=== PATIENT | female | born 1965 | race Caucasian/White ===

== ENCOUNTER 2024-06-04 07:00 | Day surgery (SDC) | payer OTHER, SELFPAY ==
[2024-05-23 11:18] VITALS: BMI 34.0
--- NOTE | 2024-06-04 06:45 | WPDANESEPPF ---
Anes - Initial Pre Proc Eval Procedure: Operation Date: 06/04/24 09:00 Proposed Procedures p Screening Colonoscopy - Peter Galeas DO Date/Time: 06/04/24 06:45 Surgeon: Peter Galeas DO Pre Op Diagnosis: Neoplasm Screening Patient Data Age: 58 Gender: F Height: 1.68 m Weight: 95.5 kg Allergies Allergy/AdvReac Type Severity Reaction Status Date / Time prednisone Allergy Severe Gastrointestinal Verified 06/04/24 08:06 Upset Home Medications Medication Instructions Recorded Confirmed Type amlodipine 5 mg-olmesartan 40 mg 1 tablet PO DAILY 04/02/24 06/04/24 History tablet cholecalciferol (vitamin D3) 125 125 mcg PO DAILY 04/02/24 06/04/24 History mcg (5,000 unit) capsule digestive enzymes 1 cap PO DAILY 04/02/24 06/04/24 History omeprazole 40 mg capsule,delayed 40 mg PO DAILY 04/02/24 06/04/24 History release progesterone micronized 200 mg 200 mg PO QHS 04/02/24 06/04/24 History capsule rosuvastatin 10 mg tablet 10 mg PO DAILY 04/02/24 06/04/24 History thyroid (pork) 30 mg tablet (REDUCTION PLANT SUPERVISOR 30 mg PO DAILY 04/02/24 06/04/24 History Thyroid) Patient hx anesthesia problems: none Family hx anesthesia problems: none Results Review: All pre-operative results and documents have been reviewed as part of the pre-operative evaluation. [facility] Past Medical History Medical History (Updated 05/04/24 @ 10:57 by Katelynn Thomson) GERD (gastroesophageal reflux disease) Hyperlipidemia Hypertension IBS (irritable bowel syndrome) Rectal fissure Surgical History Surgical History H/O rotator cuff surgery (~1994) right rotator cuff Hx of cholecystectomy (~2005) S/P cervical spinal fusion (~2015) C3, C4, C5 fusion Status post partial removal of lung (~2010) left upper lobe Family History Family History Mother Heart disease Father Heart disease Aneurysm Sibling Aneurysm Social History Social History Smoking status: Never smoker Second hand tobacco smoke exposure: No Alcohol intake: current Alcohol use details: 4 PER MONTH Substance use: never Substance use type: does not use Do You Feel Safe in your Home?: Yes Lack of Transportation: No Lack of Food: Never True Current Housing: I Have Housing Concerned About Future Housing: No Difficulty Paying Gas/Electric Bills: No Difficulty Paying for Meds: No Currently Unemployed: No Education: Bachelor's Degree Difficulty w/ Childcare or Family Care: No Living arrangements: with family Additional living arrangements comments: single Occupation/Education: occupation 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 Gender identity (if verbalized by the patient): Female Sexual Orientation (if Verbalized by the Patient): Straight or Heterosexual Spiritual care concerns: No Anes - Eval Final PreProcedure Day of Procedure 06/04/24 06:45 Patient weight: obese Heart: regular rate and rhythm Lungs: clear to auscultation Airway: Mallampati scale class III Neurological: alert and oriented Last oral intake: >/= 8 hours ASA classification: III Emergent: no Anesthetic plan: proceed Anesthesia type and monitoring: general GIVS and standard monitoring Results Review: All pre-operative results and documents have been reviewed as part of the pre-operative evaluation. Informed Consent: The patient's anesthetic plan and its attendant risks and benefits were discussed with the patient/family/POA. Questions were solicited and answers provided to the satisfaction of the patient/family/POA.
[2024-06-04 08:07] VITALS: BP 123/83; PULSE 80; RESP 16; TEMP 36.6; O2SAT 97
[2024-06-04] MEDS: LACTATED RINGERS 1,000 ML 150 ML IV CONT (08:10)
--- NOTE | 2024-06-04 09:06 | PM.IMHP ---
H&P: HPI History of Present Illness Date/Time: 06/04/24 09:06 Chief Complaint: screening for colorectal cancer Narrative: this is a 58-year-old woman who presents for colonoscopy. Her last colonoscopy was 10-15 years ago. She denies any hematochezia or melena she does have occasional hemorrhoid is. She denies family history of colon cancer Review of Systems Review of Systems: All systems reviewed & are unremarkable except as noted in HPI and below Constitutional: Constitutional: Denies chills, Denies fever(s), Denies headache(s) and Denies weight loss Eyes: Eyes: Denies change in vision ENT: Denies dizziness, Denies headache(s), Denies neck mass and Denies throat swelling Cardiovascular: Cardiovascular: Denies chest pain, Denies lightheadedness and Denies dyspnea Respiratory: Respiratory: Denies cough, Denies dyspnea and Denies wheezing Gastrointestinal: Gastrointestinal: Denies abdominal pain, Denies change in bowel habits, Denies nausea and Denies vomiting Genitourinary: Genitourinary: Denies hematuria and Denies dysuria Musculoskeletal: Musculoskeletal: Reports as per HPI Integumentary/Breasts: Skin/Breast: Reports as per HPI Neurologic: Denies dizziness and Denies headache(s) Allergic/Immunologic: Allergic/Immunologic: Denies throat swelling and Denies wheezing PMF Past Medical History Medical History (Updated 05/04/24 @ 10:57 by Katelynn Thomson) GERD (gastroesophageal reflux disease) Hyperlipidemia Hypertension IBS (irritable bowel syndrome) Rectal fissure Surgical History Surgical History H/O rotator cuff surgery (~1994) right rotator cuff Hx of cholecystectomy (~2005) S/P cervical spinal fusion (~2015) C3, C4, C5 fusion Status post partial removal of lung (~2010) left upper lobe Family History Family History Mother Heart disease Father Heart disease Aneurysm Sibling Aneurysm Social History Social History Smoking status: Never smoker Second hand tobacco smoke exposure: No Alcohol intake: current Alcohol use details: 4 PER MONTH Substance use: never Substance use type: does not use Do You Feel Safe in your Home?: Yes Lack of Transportation: No Lack of Food: Never True Current Housing: I Have Housing Concerned About Future Housing: No Difficulty Paying Gas/Electric Bills: No Difficulty Paying for Meds: No Currently Unemployed: No Education: Bachelor's Degree Difficulty w/ Childcare or Family Care: No Living arrangements: with family Additional living arrangements comments: single Occupation/Education: occupation 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 Gender identity (if verbalized by the patient): Female Sexual Orientation (if Verbalized by the Patient): Straight or Heterosexual Spiritual care concerns: No Meds Home Medications and Allergies Home Medications Medication Instructions Recorded Confirmed Type amlodipine 5 mg-olmesartan 40 mg 1 tablet PO DAILY 04/02/24 06/04/24 History tablet cholecalciferol (vitamin D3) 125 125 mcg PO DAILY 04/02/24 06/04/24 History mcg (5,000 unit) capsule digestive enzymes 1 cap PO DAILY 04/02/24 06/04/24 History omeprazole 40 mg capsule,delayed 40 mg PO DAILY 04/02/24 06/04/24 History release progesterone micronized 200 mg 200 mg PO QHS 04/02/24 06/04/24 History capsule rosuvastatin 10 mg tablet 10 mg PO DAILY 04/02/24 06/04/24 History thyroid (pork) 30 mg tablet (STATISTICS TUTOR 30 mg PO DAILY 04/02/24 06/04/24 History Thyroid) Allergies Allergy/AdvReac Type Severity Reaction Status Date / Time prednisone Allergy Severe Gastrointestinal Verified 06/04/24 08:06 Upset Vital Signs Vital Signs - 24 hr 06/04/24 08:07 Temperature 36.6 C Pulse Rate 80 Respiratory Rate 16 B
[2024-06-04 09:37] VITALS: BP 92/65; PULSE 84; RESP 14; O2SAT 98
[2024-06-04 09:47] VITALS: BP 94/63; PULSE 71; RESP 16; O2SAT 100
[2024-06-04 09:57] VITALS: BP 110/75; PULSE 73; RESP 20; O2SAT 100
--- NOTE | 2024-06-04 10:47 | WPDANESPN ---
Anes - Prog Note Post-Op Date/Time: 06/04/24 10:47 Cardiovascular status: normal Respiratory status: normal Airway patency: baseline Mental status: baseline Post-Op hydration status: normal Vital Signs: Last Vital Signs Temp 36.6 C 06/04/24 08:07 Pulse 73 06/04/24 09:57 Resp 20 06/04/24 09:57 BP 110/75 06/04/24 09:57 Pulse Ox 100 06/04/24 09:57 O2 Del Method Room Air 06/04/24 09:57 Pain Score (VAS): 0 I/O: Intake & Output 06/03/24 06/04/24 06/04/24 23:59 07:59 15:59 Intake Total 1000 Balance 1000 Post-procedural complaints: none Patient Feedback: Patient satisfied with anesthetic care. Other Findings: Patient vital signs back to baseline. Patient denies nausea and vomiting. Patient's pain under control. Patient OK for discharge.
== END 2024-06-04 10:03 | disposition home or self-care (01) ==
PROVIDERS: PCP Family Medicine; Visit Provider Surgery
PROC: 0DJD8ZZ Inspection of Lower Intestinal Tract, Via Natural or Artificial Opening Endoscopic (ICD-10-PCS; CPT 45378; principal; 2024-06-04 09:00)
DX: Z12.11 Encounter for screening for malignant neoplasm of colon (principal); K57.30 Diverticulosis of large intestine without perforation or abscess without bleeding; K64.8 Other hemorrhoids
CPT/HCPCS: 45378

== ENCOUNTER 2024-07-05 02:09 | Day surgery (SDC) | payer OTHER, SELFPAY ==
[2024-06-25 14:18] VITALS: BMI 34.0
--- NOTE | 2024-06-25 14:19 | PC.NURSE ---
Report to the Outpatient Waiting Room, entrance under the green pavilion located off [facility], at time _0600_ on date _[id number]_. Planned Procedure Time: _0730_.? Time changes happen often and if your time is changed the preop area will call you the afternoon before. - You and your visitor will be asked to self-screen and do not enter if you have any COVID symptoms. Please call surgeon if you need to reschedule. - A mask is optional within the hospital at this time. Patients may have clear liquids (water, carbonated beverages, clear teas, apple juice) until 3 hours prior to surgery with a maximum of 20 ounces. - No food from midnight until time of surgery and no smoking Take only the following medications with a SIP of water on the morning of surgery: ___Thyroid DO NOT STOP ANY OF YOUR OTHER PRESCRIPTION MEDICATIONS PRIOR TO SURGERY EXCEPT THE FOLLOWING Medications to discontinue per physician ____Vitamins and supplements. Date to take last ljfs____[id number] Please no make-up, nail omani, hairspray, perfume, deodorant, or body powder the day of surgery.? No jewelry (including any body piercings) or valuables the day of surgery, leave them at home.? Please take a shower or bath the night before, or the morning of, surgery with an antibacterial soap.? Wear comfortable, loose fitting clothing.? - Jewelry must be removed prior to entering the operating room.? Rings and piercings that are not removed may be cut off. - The hospital will not accept responsibility for valuables.? - Please leave all valuables, including medications, at home the day of surgery. If you are going home after surgery, a licensed dump truck driver off highway must drive you home.? - NO public transportation without another adult if you receive anesthesia. - We recommend that an adult stay with you for 24 hours following discharge. - We also recommend that you do not drive, make important decision, drink alcoholic beverages, or take any drugs that were not prescribed by your health care provider for at least 24 hours after your discharge time. Follow any additional instructions given to you from your surgeon. Telephone instructions given to __Gege__and asked if any additional questions and then verbalized understanding. Patient advised to call surgeon office or pre surgery nurse liaison [phone] if any additional questions.
--- NOTE | 2024-07-02 11:03 | PM.IMHP ---
H&P: HPI History of Present Illness Date/Time: 07/02/24 11:03 58-year-old female presents for definitive management of postmenopausal bleeding during her evaluation for this she has had an ultrasound which shows fibroid, as well as endometrial biopsy which did not show any abnormal tissue. Initially began with this problem after she had been taking her menopausal hormone treatment for approximately 2 years. During this evaluation the above was noted and she has opted now to have definitive management of her uterine fibroids. Chief Complaint: Postmenopausal bleeding PMFSH Past Medical History Medical History GERD (gastroesophageal reflux disease) Hyperlipidemia Hypertension IBS (irritable bowel syndrome) Rectal fissure Surgical History Surgical History H/O rotator cuff surgery (~1994) right rotator cuff Hx of cholecystectomy (~2005) S/P cervical spinal fusion (~2015) C3, C4, C5 fusion Status post partial removal of lung (~2010) left upper lobe Family History Family History Mother Heart disease Father Heart disease Aneurysm Sibling Aneurysm Social History Social History Smoking status: Never smoker Second hand tobacco smoke exposure: No Alcohol intake: current Alcohol use details: 4 PER MONTH Substance use: never Substance use type: does not use Do You Feel Safe in your Home?: Yes Lack of Transportation: No Lack of Food: Never True Current Housing: I Have Housing Concerned About Future Housing: No Difficulty Paying Gas/Electric Bills: No Difficulty Paying for Meds: No Currently Unemployed: No Education: Bachelor's Degree Difficulty w/ Childcare or Family Care: No Living arrangements: with family Additional living arrangements comments: single Occupation/Education: occupation 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 Gender identity (if verbalized by the patient): Female Sexual Orientation (if Verbalized by the Patient): Straight or Heterosexual Spiritual care concerns: No Meds Home Medications and Allergies Home Medications Medication Instructions Recorded Confirmed Type amlodipine 5 mg-olmesartan 40 mg 1 tablet PO DAILY 04/02/24 06/25/24 History tablet cholecalciferol (vitamin D3) 125 125 mcg PO DAILY 04/02/24 06/25/24 History mcg (5,000 unit) capsule digestive enzymes 1 cap PO DAILY 04/02/24 06/25/24 History omeprazole 40 mg capsule,delayed 40 mg PO DAILY 04/02/24 06/25/24 History release progesterone micronized 200 mg 200 mg PO QHS 04/02/24 06/25/24 History capsule rosuvastatin 10 mg tablet 10 mg PO DAILY 04/02/24 06/25/24 History thyroid (pork) 30 mg tablet (RIBBON WINDER 30 mg PO DAILY 04/02/24 06/25/24 History Thyroid) Allergies Allergy/AdvReac Type Severity Reaction Status Date / Time prednisone AdvReac Severe Gastrointestinal Verified 06/25/24 14:10 Upset Exam Const: General: cooperative, healthy appearing and comfortable Resp: Effort & Inspection: normal respiratory effort Auscultation: clear to auscultation bilaterally Cardio: Rate: regular rate Rhythm: regular rhythm GI: Inspection: normal to inspection Auscultation: normal bowel sounds : External Female Exam: normal external appearance Speculum Exam - Vagina: normal appearance of the vagina Speculum Exam - Cervix: normal appearance of the cervix Bimanual exam- vagina & uterus: enlarged ( 8-10 week size irregular contour) Bimanual Exam- Adnexa, other: normal adnexae Assessment and Plan Assessment and plan (1) Fibroid uterus: Code(s): D25.9 - Leiomyoma of uterus, unspecified Status: Acute (2) Postmenopausal bleeding: Code(s): N95.0 - Postmenopausal bleeding Status: Acute Plan p
[2024-07-05] VITALS (12 sets, daily range): BP systolic 106–150; BP diastolic 69–95; PULSE 73–98; RESP 12–17; TEMP 36.3–36.8; O2SAT 93–100
[2024-07-05] MEDS: KETOROLAC 15 MG/ML VIAL (*BKC) IV PUSH (06:30)
[2024-07-05] MEDS: LACTATED RINGERS 1,000 ML 30 ML IV CONT ×2 (06:30→09:05)
[2024-07-05] MEDS: ACETAMINOPHEN 500 MG TABLET 1000 MG PO (06:30)
[2024-07-05 07:06] LABS: Hemoglobin 14.5 g/dL (12.0-15.0); Mean Corpuscular HGB Conc 33.7 g/dl (32-36); Mean Corpuscular Hemoglobin 30.3 pg (26-34); Mean Platelet Volume 8.9 fl (7.4-10.4); Platelet Count Result 292 k/mm3 (150-375); Red Blood Count 4.78 M/mm3 (4.2-5.4); Red Cell Distribution Width 11.8 % (11.5-14.5); White Blood Count 6.5 K/mm3 (4.5-10.0)
--- NOTE | 2024-07-05 07:18 | WPDHPUPDATE1 ---
History and Physical Update Update Date/Time: 07/05/24 07:18 History and Physical has been reviewed, including an updated exam of the patient. There are NO changes in the patient's condition. Risks, benefits, and alternatives have been discussed and questions answered. Patient agrees to proceed with procedure.
--- NOTE | 2024-07-05 07:20 | WPDANESEPPF ---
Anes - Initial Pre Proc Eval Procedure: Operation Date: 07/05/24 07:30 Proposed Procedures p Robotic Assisted Total Laparoscopic Hysterectomy with Bilateral Salpingo-oohorectomy - Morteza Jaquez MD Date/Time: 07/05/24 07:20 Surgeon: Morteza Jaquez MD Pre Op Diagnosis: Post Menopausal Bleeding Patient Data Age: 58 Gender: F Height: 1.68 m Weight: 95.5 kg Allergies Allergy/AdvReac Type Severity Reaction Status Date / Time prednisone AdvReac Severe Gastrointestinal Verified 06/25/24 14:10 Upset Home Medications Medication Instructions Recorded Confirmed Type amlodipine 5 mg-olmesartan 40 mg 1 tablet PO DAILY 04/02/24 06/25/24 History tablet cholecalciferol (vitamin D3) 125 125 mcg PO DAILY 04/02/24 06/25/24 History mcg (5,000 unit) capsule digestive enzymes 1 cap PO DAILY 04/02/24 06/25/24 History omeprazole 40 mg capsule,delayed 40 mg PO DAILY 04/02/24 06/25/24 History release progesterone micronized 200 mg 200 mg PO QHS 04/02/24 06/25/24 History capsule rosuvastatin 10 mg tablet 10 mg PO DAILY 04/02/24 06/25/24 History thyroid (pork) 30 mg tablet (BRANCH MECHANIC 30 mg PO DAILY 04/02/24 06/25/24 History Thyroid) Laboratory Tests 07/05/24 06:07 WBC 6.5 K/mm3 (4.5-10.0) RBC 4.78 M/mm3 (4.2-5.4) Hgb 14.5 g/dL (12.0-15.0) Hct 43.0 % (37.0-47.0) MCV 90.0 fl (80-100) MCH 30.3 pg (26-34) MCHC 33.7 g/dl (32-36) RDW 11.8 % (11.5-14.5) Plt Count 292 k/mm3 (150-375) MPV 8.9 fl (7.4-10.4) Blood Type Pending Antibody Screen Pending Patient hx anesthesia problems: none Family hx anesthesia problems: none Results Review: All pre-operative results and documents have been reviewed as part of the pre-operative evaluation. [facility] Past Medical History Medical History GERD (gastroesophageal reflux disease) Hyperlipidemia Hypertension IBS (irritable bowel syndrome) Rectal fissure Surgical History Surgical History H/O rotator cuff surgery (~1994) right rotator cuff Hx of cholecystectomy (~2005) S/P cervical spinal fusion (~2015) C3, C4, C5 fusion Status post partial removal of lung (~2010) left upper lobe Family History Family History Mother Heart disease Father Heart disease Aneurysm Sibling Aneurysm Social History Social History Smoking status: Never smoker Second hand tobacco smoke exposure: No Alcohol intake: current Alcohol use details: 4 PER MONTH Substance use: never Substance use type: does not use Do You Feel Safe in your Home?: Yes Lack of Transportation: No Lack of Food: Never True Current Housing: I Have Housing Concerned About Future Housing: No Difficulty Paying Gas/Electric Bills: No Difficulty Paying for Meds: No Currently Unemployed: No Education: Bachelor's Degree Difficulty w/ Childcare or Family Care: No Living arrangements: with family Additional living arrangements comments: single Occupation/Education: 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 Gender identity (if verbalized by the patient): Female Sexual Orientation (if Verbalized by the Patient): Straight or Heterosexual Spiritual care concerns: No Anes - Eval Final PreProcedure Day of Procedure 07/05/24 07:20 Patient weight: obese Heart: regular rate and rhythm Lungs: clear to auscultation Airway: Mallampati scale class II Neurological: alert and oriented Last oral intake: >/= 8 hours ASA classification: III Emergent: no Anesthetic plan: proceed Anesthesia type and monitoring: general ETT and standard monitoring Results Review: All pre-operative results and documents have been reviewed as part of th
[2024-07-05] MEDS: ceFAZolin 2 GM/D5W 50 ML 2 GM/50 ML BAG IVPB (07:22)
--- NOTE | 2024-07-05 08:42 | W.PM.PROC2 ---
Procedure Note - Detailed Date of Procedure 07/05/24 Pre-op Diagnosis Post Menopausal Bleeding Post-op Diagnosis Same Procedure Performed Robotic assisted total laparoscopic hysterectomy with bilateral salpingo oophorectomy Surgeon Morteza Jaquez MD Anesthesia General Findings Enlarged uterus, tubes ovaries without abnormality Description of Procedure Patient prepped draped usual manner for this procedure. Cervical instruments placed for uterine mobility throughout the procedure. Surgeon then moved to the patient's abdomen and trocar sites were marked trocars were placed under direct visualization. Patient was placed in Trendelenburg position and de Ilsa system was attached to these trocars. Instruments were placed under direct visualization with findings as noted above. Bilaterally the round ligament was cauterized cut bladder flap developed without difficulty. Infundibulopelvic ligament was then cauterized and cut and mesial salpinx was cauterized and cut to separate the ovary and tube from the pelvic sidewall. Posterior leaf the broad ligament was then incised to skeletonize the uterine vessels. Vessels then cauterized and cut bilaterally. Anterior colpotomy was is was made and this was carried circumferentially to separate the cervix from the vagina. Uterus tubes over then delivered into the then without difficulty. V lock suture was then used to approximate the vaginal cuff with hemostasis and good approximation noted. Irrigation was undertaken there was no bleeding. Hemogram was placed throughout all of the surgical periods without difficulty. Gas was allowed to escape, trocars removed, incisions approximated using 4-0 Monocryl. Patient was sent to recovery room in stable condition. Estimated Blood Loss 100 Drains No Packing No Pathology Yes Complications No immediate complications Condition Stable Disposition PACU [facility] Billing Surgery - Charge Forward: Surgery Billing
[2024-07-05] MEDS: fentaNYL CITRATE INJ (*CRX) 100 MCG/2 ML VIAL 25 MCG IV PUSH ×6 (09:28→10:05)
[2024-07-05] MEDS: HYDROmorphone HCL INJ (*CRX) 1 MG/ML SYR IV PUSH (10:22)
[2024-07-05] MEDS: SIMETHICONE 80 MG TAB.CHEW PO ×3 (11:20→19:54)
[2024-07-05] MEDS: HYDROcodone/acetaminophen (*CRX) 10-325 MG TABLET 1 TAB PO ×2 (11:21→15:13)
[2024-07-05] MEDS: IBUPROFEN 600 MG TABLET PO (15:13)
[2024-07-05] MEDS: ONDANSETRON INJ 4 MG/2 ML VIAL IV PUSH (20:09)
[2024-07-06] MEDS: HYDROcodone/acetaminophen (*CRX) 5-325 MG TABLET 1 TAB PO ×2 (00:54→08:28)
[2024-07-06] MEDS: IBUPROFEN 600 MG TABLET PO ×2 (00:54→08:28)
[2024-07-06 00:56] VITALS: BP 99/58; PULSE 94; RESP 16; TEMP 36.8; O2SAT 95
[2024-07-06] MEDS: HYDROcodone/acetaminophen (*CRX) 10-325 MG TABLET 1 TAB PO (05:08)
[2024-07-06 05:26] VITALS: BP 125/77; PULSE 91; RESP 16; TEMP 36.6; O2SAT 95
[2024-07-06 06:14] LABS: Basophils Percent Auto 0.2 % (0.2-1.2); Hematocrit 44.1 % (37.0-47.0); Hemoglobin 14.3 g/dL (12.0-15.0); Immature Granulocyte Absolute 0.04 K/mm3 (0.00-0.031); Immature Granulocyte Percent A 0.3 % (0-0.5); Lymphocytes Absolute Auto 1.03 K/mm3 (0.9-3.2); Lymphocytes Percent Auto 8.3 % (18.3-44.2); Mean Corpuscular HGB Conc 32.4 g/dl (32-36); Mean Corpuscular Hemoglobin 29.8 pg (26-34); Mean Corpuscular Volume 91.9 fl (80-100); Mean Platelet Volume 8.9 fl (7.4-10.4); Monocytes Absolute Auto 1.1 K/mm3 (0.1-0.6); Monocytes Percent Auto 9.2 % (2.6-8.5); Neutrophils Absolute Auto 10.2 K/mm3 (1.3-6.7); Platelet Count Result 354 k/mm3 (150-375); Red Cell Distribution Width 11.7 % (11.5-14.5); White Blood Count 12.4 K/mm3 (4.5-10.0)
[2024-07-06 07:35] VITALS: BP 116/69; PULSE 86; RESP 16; TEMP 36.6; O2SAT 94
[2024-07-06] MEDS: SIMETHICONE 80 MG TAB.CHEW PO (08:29)
[2024-07-06 08:30] VITALS: PULSE 86; RESP 16; O2SAT 94
== END 2024-07-06 10:55 | disposition home or self-care (01) ==
LOC: ANHSURGERY 05:56 → ANHOB2 16:34
PROVIDERS: PCP Family Medicine; Visit Provider Obstetrics & Gynecology
PROC: (CPT 58571; principal; 2024-07-05 07:30)
DX: D25.1 Intramural leiomyoma of uterus (principal); N80.03 Adenomyosis of the uterus; N99.71 Accidental puncture and laceration of a genitourinary system organ or structure during a genitourinary system procedure; I10 Essential (primary) hypertension; E78.5 Hyperlipidemia, unspecified; K21.9 Gastro-esophageal reflux disease without esophagitis; K58.9 Irritable bowel syndrome, unspecified; G89.18 Other acute postprocedural pain; E66.9 Obesity, unspecified; Z68.35 Body mass index [BMI] 35.0-35.9, adult; Z98.890 Other specified postprocedural states; Z90.49 Acquired absence of other specified parts of digestive tract; Z98.1 Arthrodesis status; Z90.2 Acquired absence of lung [part of]; Z82.49 Family history of ischemic heart disease and other diseases of the circulatory system
CPT/HCPCS: 58571; 57200; S2900; 36415; 85025; 85027; 86850; 86900; 86901; 88307; 99199; A9270; J0690; J1100; J1170; J1885; J2250; J2371; J2405; J2704; J3010; J7030; J7120

== ENCOUNTER 2024-10-08 05:51 | Day surgery (SDC) | payer OTHER, SELFPAY ==
[2024-07-11 14:49] VITALS: BMI 34.0
[2024-09-17 14:21] VITALS: BMI 34.0
--- NOTE | 2024-10-08 07:06 | P.PNAN_ITS ---
Anes - Initial Pre Proc Eval Procedure: Operation Date: 10/08/24 07:30 Proposed Procedures p Esophagogastroduodenoscopy - Peter Galeas DO Date/Time: 10/08/24 07:06 Surgeon: Peter Galeas DO Pre Op Diagnosis: Halitosis Patient Data Age: 58 Gender: F Height: 1.68 m Weight: 97.45 kg Allergies Allergy/AdvReac Type Severity Reaction Status Date / Time prednisone AdvReac Severe Gastrointestinal Verified 10/08/24 06:13 Upset Home Medications ?Medication ?Instructions ?Recorded ?Confirmed ?Type amlodipine 5 mg-olmesartan 40 mg 1 tablet PO DAILY 04/02/24 10/08/24 History tablet cholecalciferol (vitamin D3) 125 125 mcg PO DAILY 04/02/24 10/08/24 History mcg (5,000 unit) capsule digestive enzymes 1 cap PO DAILY 04/02/24 10/08/24 History progesterone micronized 200 mg 200 mg PO QHS 04/02/24 10/08/24 History capsule rosuvastatin 10 mg tablet 10 mg PO DAILY 04/02/24 10/08/24 History thyroid (pork) 30 mg tablet (TRAY CASTING MACHINE OPERATOR 30 mg PO DAILY 04/02/24 10/08/24 History Thyroid) cranberry fruit concentrate 250 mg 250 mg PO TID 08/17/24 10/08/24 History chewable tablet (Azo Cranberry) lactobacillus combination no.9 4 4,000 mmu cells PO DAILY 08/17/24 10/08/24 History billion cell capsule (Adult 50 Plus Probiotic) Patient hx anesthesia problems: none Family hx anesthesia problems: none Results Review: All pre-operative results and documents have been reviewed as part of the pre- operative evaluation. [facility] Past Medical History Medical History (Updated 10/08/24 @ 07:07 by Brooks Martínez DO) History of melanoma Hypothyroidism Rectal fissure IBS (irritable bowel syndrome) GERD (gastroesophageal reflux disease) Hyperlipidemia Hypertension Surgical History Surgical History History of robot-assisted laparoscopic hysterectomy (07/05/24) Robotic assisted total laparoscopic hysterectomy with bilateral salpingo oophorectomy S/P cervical spinal fusion (~2015) C3, C4, C5 fusion H/O rotator cuff surgery (~1994) right rotator cuff Hx of cholecystectomy (~2005) Status post partial removal of lung (~2010) left upper lobe Family History Family History Mother Heart disease Father Heart disease Aneurysm Sibling Aneurysm Social History Social History Smoking status: Never smoker Second hand tobacco smoke exposure: No Alcohol intake: current Drinks per week: 4 Alcohol use details: 4 PER MONTH Substance use: never Substance use type: does not use Do You Feel Safe in your Home?: Yes Lack of Transportation: No Lack of Food: Never True Current Housing: I Have Housing Concerned About Future Housing: No Difficulty Paying Gas/Electric Bills: No Difficulty Paying for Meds: No Currently Unemployed: No Education: Bachelor's Degree Difficulty w/ Childcare or Family Care: No Living arrangements: with family Additional living arrangements comments: single Occupation/Education: occupation 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 Gender identity (if verbalized by the patient): Female Sexual Orientation (if Verbalized by the Patient): Straight or Heterosexual Spiritual care concerns: No Anes - Eval Final PreProcedure Day of Procedure 10/08/24 07:06 Patient weight: obese Heart: regular rate and rhythm Lungs: clear to auscultation Airway: Mallampati scale class II Neurological: alert and oriented Last oral intake: >/= 8 hours ASA classification: III Emergent: no Anesthetic plan: proceed Anesthesia type and monitoring: general GIVS and standard monitoring Results Review: All pre-operative results and documents have been reviewed as part of the pre- operative evaluation. Informed Consent: The patient's anesthetic plan and its attendant risks and benefits were discussed with the patient/family/POA. Questions were solicited and answers provided to the satisfaction of the patient/family/POA.
--- NOTE | 2024-10-08 07:20 | PM.IMHP ---
H&P: HPI History of Present Illness Date/Time: 10/08/24 07:20 Chief Complaint: Acid reflux, halitosis Narrative: this is a 58-year-old woman who presents for EGD. She has been experiencing some occasional acid reflux for which she takes Prilosec. She states that she is also concerned because she gets a lot of very bad breath. She does okay taking the Prilosec but is wondering if she has a hiatal hernia. She states that she does not really modify her diet to help decrease acid reflux. She denies any smoking or excessive NSAID use. Review of Systems Review of Systems: All systems reviewed & are unremarkable except as noted in HPI and below Constitutional: Constitutional: Denies chills, Denies fever(s), Denies headache(s) and Denies weight loss Eyes: Eyes: Denies change in vision ENT: Denies dizziness, Denies headache(s), Denies neck mass and Denies throat swelling Cardiovascular: Cardiovascular: Denies chest pain, Denies lightheadedness and Denies dyspnea Respiratory: Respiratory: Denies cough, Denies dyspnea and Denies wheezing Gastrointestinal: Gastrointestinal: Denies abdominal pain, Denies change in bowel habits, Denies nausea and Denies vomiting Genitourinary: Genitourinary: Denies hematuria and Denies dysuria Musculoskeletal: Musculoskeletal: Reports as per HPI Integumentary/Breasts: Skin/Breast: Reports as per HPI Neurologic: Denies dizziness and Denies headache(s) Allergic/Immunologic: Allergic/Immunologic: Denies throat swelling and Denies wheezing [facility] Past Medical History Medical History (Updated 10/08/24 @ 07:22 by Peter Galeas DO) History of melanoma Hypothyroidism Rectal fissure IBS (irritable bowel syndrome) GERD (gastroesophageal reflux disease) Hyperlipidemia Hypertension Surgical History Surgical History History of robot-assisted laparoscopic hysterectomy (07/05/24) Robotic assisted total laparoscopic hysterectomy with bilateral salpingo oophorectomy S/P cervical spinal fusion (~2015) C3, C4, C5 fusion H/O rotator cuff surgery (~1994) right rotator cuff Hx of cholecystectomy (~2005) Status post partial removal of lung (~2010) left upper lobe Family History Family History Mother Heart disease Father Heart disease Aneurysm Sibling Aneurysm Social History Social History Smoking status: Never smoker Second hand tobacco smoke exposure: No Alcohol intake: current Drinks per week: 4 Alcohol use details: 4 PER MONTH Substance use: never Substance use type: does not use Do You Feel Safe in your Home?: Yes Lack of Transportation: No Lack of Food: Never True Current Housing: I Have Housing Concerned About Future Housing: No Difficulty Paying Gas/Electric Bills: No Difficulty Paying for Meds: No Currently Unemployed: No Education: Bachelor's Degree Difficulty w/ Childcare or Family Care: No Living arrangements: with family Additional living arrangements comments: single Occupation/Education: occupation 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 Gender identity (if verbalized by the patient): Female Sexual Orientation (if Verbalized by the Patient): Straight or Heterosexual Spiritual care concerns: No Meds Home Medications and Allergies Home Medications ?Medication ?Instructions ?Recorded ?Confirmed ?Type amlodipine 5 mg-olmesartan 40 mg 1 tablet PO DAILY 04/02/24 10/08/24 History tablet cholecalciferol (vitamin D3) 125 125 mcg PO DAILY 04/02/24 10/08/24 History mcg (5,000 unit) capsule digestive enzymes 1 cap PO DAILY 04/02/24 10/08/24 History progesterone micronized 200 mg 200 mg PO QHS 04/02/24 10/08/24 History capsule rosuvastatin 10 mg tablet 10 mg PO DAILY 04/02/24 10/08/24 History thyroid (pork) 30 mg tablet ([employer] 30 mg PO DAILY 04/02/24 10/08/24 History Thyroid) cranberry fruit concentrate 250 mg 250 mg PO TID 08/17/24 10/08/24 History chewable tablet (Azo Cranberry) lactobacillus combination no.9 4 4,000 mmu cells PO DAILY 08/17/24 10/08/24 History billion cell capsule (Adult 50 Plus Probiotic) Allergies Allergy/AdvReac Type Severity Reaction Status Date / Time prednisone AdvReac Severe Gastrointestinal Verified 10/08/24 06:13 Upset Exam Const: General: no acute distress and alert Orientation/consciousness: patient oriented x3 HENMT: Head: normocephalic and atraumatic Ears: hearing grossly normal bilaterally Face/Nose/Sinus: Normal nares present Mouth: Yes Normal oral and palatal mucosa present Eyes: Periorbital: periorbital findings normal Sclera: sclerae normal EOM: EOMs intact bilaterally Neck: Neck: normal visual inspection, no lymphadenopathy and trachea midline Chest: Chest palpation & inspection: normal inspection of the chest Resp: Effort & Inspection: normal respiratory effort Auscultation: clear to auscultation bilaterally Cardio: Jugular venous distension: no JVD Rate: regular rate Rhythm: regular rhythm Heart sounds: S1 normal heart sound present and S2 normal heart sound present Peripheral pulses: Peripheral pulses 2+ throughout GI: Inspection: normal to inspection GI Palp: Yes Soft to palpation, No Tenderness to palpation present (GI), No Guarding due to palpation present (GI) and No Rebound tenderness present Percussion: Yes normal to percussion Auscultation: normal bowel sounds : General: Yes no CVA tenderness Back/Spine/Pelvis: Back: no CVA tenderness Neuro: General: patient oriented x3, no focal motor deficits and CN's II-XI intact bilaterally Cognition (Neuro): normal cognition Speech: normal speech Motor exam (neuro): 5/5 motor strength present throughout Extrem: General: capillary refill normal and no clubbing, cyanosis or edema Assessment and Plan Assessment and plan (1) Halitosis: Code(s): R19.6 - Halitosis Status: Acute Assessment and Plan: I have recommended EGD. I have discussed the procedure, risks, benefits, and alternatives. Questions were answered. Patient is agreeable to proceed. (2) GERD (gastroesophageal reflux disease): Code(s): K21.9 - Gastro-esophageal reflux disease without esophagitis Status: Acute
[2024-10-08] MEDS: LACTATED RINGERS 1,000 ML 150 ML IV CONT (07:39)
[2024-10-08 07:40] VITALS: BP 104/65; PULSE 71; RESP 16; O2SAT 98
[2024-10-08 07:50] VITALS: BP 103/60; PULSE 69; RESP 16; O2SAT 97
[2024-10-08 08:00] VITALS: BP 121/83; PULSE 63; RESP 16; O2SAT 100
--- NOTE | 2024-10-08 09:44 | WPDANESPN ---
Anes - Prog Note Post-Op Date/Time: 10/08/24 09:44 Cardiovascular status: normal Respiratory status: normal Airway patency: baseline Mental status: baseline Post-Op hydration status: normal Vital Signs: Last Vital Signs Pulse 63 10/08/24 08:00 Resp 16 10/08/24 08:00 BP 121/83 10/08/24 08:00 Pulse Ox 100 10/08/24 08:00 O2 Del Method Room Air 10/08/24 08:00 Pain Score (VAS): 0 I/O: Intake & Output 10/07/24 10/08/24 10/08/24 23:59 07:59 15:59 Intake Total 450 Balance 450 Post-procedural complaints: none Patient Feedback: Patient satisfied with anesthetic care. Other Findings: Patient vital signs back to baseline. Patient denies nausea and vomiting. Patient's pain under control. Patient OK for discharge.
== END 2024-10-08 08:08 | disposition home or self-care (01) ==
PROVIDERS: PCP Family Medicine; Visit Provider Surgery
PROC: 0DJ08ZZ Inspection of Upper Intestinal Tract, Via Natural or Artificial Opening Endoscopic (ICD-10-PCS; CPT 43235; principal; 2024-10-08 07:30)
DX: R19.6 Halitosis (principal)
CPT/HCPCS: 43235